=== PATIENT | female | born 1980 | race Caucasian/White ===

== ENCOUNTER 2020-04-13 08:55 | Emergency (ER) | payer BC ==
[~2020-04-13] VITALS: Ht 180.3 cm; Wt 86.2 kg
[2020-04-13] MEDS ORDERED: HUMALOG100 UNIT/1 (09:53)
== END 2020-04-13 10:30 | disposition left against medical advice (07) ==
LOC: ER 08:55
DX: M54.5 Low back pain (principal); M25.552 Pain in left hip; G89.29 Other chronic pain; E11.9 Type 2 diabetes mellitus without complications; Z79.4 Long term (current) use of insulin; Z91.040 Latex allergy status
CPT/HCPCS: 99283